=== PATIENT | male | born 1955 | race Caucasian/White ===

== ENCOUNTER 2017-09-01 11:34 | Day surgery (SDC) | payer OTHER ==
[2017-09-01] MEDS ORDERED: fentaNYL 100 MCG/2 ML INJ IVP ONE (11:48)
[2017-09-01] MEDS ORDERED: BENZOCAINE UNIT DOSE SPRAY HURRICAINE MM ONE (11:48)
[2017-09-01] MEDS ORDERED: MIDAZOLAM 2 MG/2 ML VIAL IVP ONE (11:48)
[2017-09-01] MEDS ORDERED: NS 500 ML IV ONE (11:48)
[2017-09-01] MEDS ORDERED: ATROPINE SULFATE 1 MG/10 ML SYR IVP ONE (11:48)
--- NOTE | 2017-09-01 12:15 | PDANEPAE ---
ANE Past Medical History - Pulmonary History Hx Sleep Apnea: Yes ANE Review of Systems Review of Systems: ANE Patient History - Allergies Allergies/Adverse Reactions: benadryl Allergy (Uncoded 06/15/12 16:24) aggravates afib - Home Medications Home Medications: Aspirin [Aspir 81] 81 mg PO 1800 06/30/12 [Last Taken 06/29/12] Metoprolol Tartrate 8 mg PO DAILY 06/30/12 [Last Taken 06/23/12] Pharmacy Complete 06/30/12 06/30/12 [Last Taken Unknown] - Smoking Hx Smoking Status: Never smoked ANE Labs/Vital Signs - Vital Signs Height: 180 cm Weight: 78 kg ANE Physical Exam - Airway Neck exam: FROM Mallampati Score: Class 1 Mouth exam: normal dental/mouth exam - Pulmonary Pulmonary: no respiratory distress, no rales or rhonchi - Cardiovascular Cardiovascular: regular rate and rhythym, no murmur, rub, or gallop - ASA Status ASA Status: III ANE Anesthesia Plan Anesthesia Plan: GA with mask
[2017-09-01] MEDS ORDERED: PROPOFOL 200 MG/20 ML VIAL ONE (12:20)
[2017-09-01 12:35] LABS: INR 1.05 (0.83-1.16); PROTIME(PATIENT) 13.9 SEC (12.0-15.0)
--- NOTE | 2017-09-01 12:35 | PDHPUP ---
History & Physical Update H&P update statement: This history and physical update is based on an assessment of the patient which was completed after admission or registration (within 24 hours), but prior to the surgery/procedure. pt wants jannie and cardioversion. he is on eliquis understands risks and options.
[2017-09-01] MEDS ORDERED: NALOXONE HCL 0.4 MG/ML INJ IVP PRN (12:55)
--- NOTE | 2017-09-01 12:55 | POSTANESTH ---
Post Anesthetic Evaluation Cardiovascular Status: Normal, Stable Respiratory Status: Normal, Stable Level of Consciousness/Mental Status: Can Participate in Eval Pain Control: Adequate, Prn Tx Ordered Nausea/Vomiting Control: Adequate, Prn Tx Ordered Complications Possibly Related to Anesthesia: None Noted
--- NOTE | 2017-09-01 13:19 | CPIP ---
[f rep st] INVASIVE CARDIAC PROCEDURE Atrial fibrillation. The patient was referred for cardioversion and transesophageal echocardiogram for symptomatic atrial fibrillation. He gave informed consent, and we went carefully over the risks and options that were available to him . He wanted to proceed. The patient had a transesophageal echocardiogram which showed excellent flow through his left atrial appendage. No sign of abnormality or clot, and had terrific velocities. We proceeded to do cardioversion with 360 watt seconds, and the patient converted to normal sinus rhy th. At the time of this dictation, he is waking up with Anesthesia present. He is moving all his extremi ties, and so far has tolerated the procedure very well. /[id number]/MODL
--- NOTE | 2017-09-01 13:43 | CPEKG ---
Heart Rate: 55 RR Interval: 1091 P-R Interval: 192 QRSD Interval: 86 QT Interval: 464 QTC Interval: 444 P [place]: 42 QRS [place]: 62 T Wave [place]: 23 EKG Severity - NORMAL ECG - EKG Impression: SINUS RHYTHM Electronically Signed By: Michael Meléndez 01-Sep-2017 14:50:23
--- NOTE | 2017-09-02 12:12 | ECHO ---
[email or web address] [address] Main: [phone] Fax: Transesophageal Echocardiography Name: BRANDY MATHUR MR#: [id number] Study Date: 09/01/2017 Study Time: 12:23 PM Date of : 1955 Age: 62 year(s) Height: ( ) Weight: ( ) BSA: Gender: Male Examination: Echo Indication: Atrial Flutter Image Quality: Contrast: Requested by: Tobin Gould Heart Rate: Rhythm: Atrial flutter BP: / Procedure Staff Rn Pacu: Judi Kumar [facility] Reading Physician: Zeb Davila MD Requesting Provider: JAMES Exam Details Conclusions: No thrombus in left appendage. The aortic valve is tri-leaflet. Measurements: Chambers Valvular Assessment AV/MV Valvular Assessment TV/PV Normal Normal Normal Name Value Range Name Value Range Name Value Range Additional Measurements: Findings: Left Atrial Appendage: No thrombus in left appendage. Aortic Valve: The aortic valve is tri-leaflet. l1n (No Signature Object) Patient: BRANDY MATHUR Study Date: 09/01/2017 Page 1 of 1 12:23 PM [id number]
== END 2017-09-01 14:41 | disposition home or self-care (01) ==
LOC: FCATH 11:34 → EDSTATUS 18:10
PROVIDERS: ATTEND Internal Medicine Cardiovascular Disease
PROC: B245ZZ4 Ultrasonography of Left Heart, Transesophageal (ICD-10-PCS; principal; 2017-09-01)
PROC: 5A2204Z Restoration of Cardiac Rhythm, Single (ICD-10-PCS; principal; 2017-09-01)
DX: I48.92 Unspecified atrial flutter (principal); R00.2 Palpitations; R07.89 Other chest pain; R68.89 Other general symptoms and signs; Z79.01 Long term (current) use of anticoagulants; Z98.890 Other specified postprocedural states
CPT/HCPCS: J2250; J2704

== ENCOUNTER 2017-09-17 14:49 | Day surgery (SDC) | payer OTHER ==
[2017-09-17] MEDS ORDERED: MIDAZOLAM 2 MG/2 ML VIAL IVP ONE (14:54)
[2017-09-17] MEDS ORDERED: NS 500 ML IV ONE (14:54)
[2017-09-17] MEDS ORDERED: fentaNYL 100 MCG/2 ML INJ IVP ONE (14:54)
[2017-09-17] MEDS ORDERED: ATROPINE SULFATE 1 MG/10 ML SYR IVP ONE (14:54)
[2017-09-17] MEDS ORDERED: PROPOFOL 200 MG/20 ML VIAL ONE (15:31)
--- NOTE | 2017-09-17 15:33 | PDANEPAE ---
ANE History of Present Illness h/o a. fib ANE Past Medical History - Cardiovascular History Hx Hypertension: No Hx Arrhythmias: Yes Hx Chest Pain: No Hx Coronary Artery / Peripheral Vascular Disease: No Hx CHF / Valvular Disease: No Hx Palpitations: Yes - Pulmonary History Hx COPD: No Hx Asthma/Reactive Airway Disease: No Hx Recent Upper Respiratory Infection: No Hx Oxygen in Use at Home: No Hx Sleep Apnea: Yes ANE Review of Systems Review of systems is: negative Review of Systems: - Exercise capacity Exercise capacity: >=4 METS ANE Patient History - Allergies Allergies/Adverse Reactions: benadryl Allergy (Uncoded 06/15/12 16:24) aggravates afib - Home Medications Home medications: home medication list seen and reviewed Home Medications: Metoprolol Tartrate 12.5 mg PO BID 06/30/12 [Last Taken 09/15/17 08:00] Pharmacy Complete 06/30/12 06/30/12 [Last Taken Unknown] Eliquis 5 mg PO BID 09/17/17 [Last Taken 09/17/17 05:55] - Anes Hx Anes Hx: no prior problems - Smoking Hx Smoking Status: Never smoked ANE Labs/Vital Signs - Labs Result Diagrams: 09/17/17 15:00 - Vital Signs Height: 180 cm Weight: 78 kg ANE Physical Exam - Airway Neck exam: FROM Mallampati Score: Class 1 Mouth exam: normal dental/mouth exam - Pulmonary Pulmonary: no respiratory distress - Cardiovascular Cardiovascular: regular rate and rhythym, irregularly irregular - ASA Status ASA Status: II ANE Anesthesia Plan Anesthesia Plan: GA with mask
--- NOTE | 2017-09-17 15:36 | PDGENHP ---
History & Physical Chief Complaint: Atrial Fibrillation. History of Present Illness: Palpitations, new onset atrial fibrillation. Pertinent Past, Social, Family History: None. Relevant Physical Exam: Clear lungs, irregularly irregular. Cardiorespiratory Assessment: New onset atrial fibrillation. On Eliquis. Prior JAMES/CV 09/01/2017.
[2017-09-17 15:57] LABS: INR 1.04 (0.83-1.16); PROTIME(PATIENT) 13.8 SEC (12.0-15.0)
--- NOTE | 2017-09-17 16:03 | PDTEE1 ---
JAMES Cardioversion Procedure Procedure: electrical cardioversion Indications: atrial fibrillation Consent: signed and in chart Anticoagulation: eliquis Procedural Details: Pads were placed in anterior-posterior position. JAMES probe was advanced and standard images obtained. There is no evidence of left atrial or left atrial appendage thrombus. Synchronized cardioversion attempt #1: 200J Results: normal sinus rhythm Conclusions: successful cardioversion Conclusion Comment: JAMES not performed. Patient Problems: Problems Problem Status Onset Atrial fibrillation and flutter Active
[2017-09-17] MEDS ORDERED: NALOXONE HCL 0.4 MG/ML INJ IVP PRN (16:09)
--- NOTE | 2017-09-17 16:14 | CPEKG ---
Heart Rate: 49 RR Interval: 1224 P-R Interval: 180 QRSD Interval: 80 QT Interval: 468 QTC Interval: 423 P [place]: 47 QRS [place]: 56 T Wave [place]: 45 EKG Severity - OTHERWISE NORMAL ECG - EKG Impression: SINUS BRADYCARDIA Electronically Signed By: Gerardo Silveira 17-Sep-2017 16:18:26
[2017-09-17] MEDS ORDERED: LIDOCAINE/PRILOCAINE 1 EACH CRTUBE TP ONE (17:06)
== END 2017-09-17 17:19 | disposition home or self-care (01) ==
LOC: FCATH 14:49
PROVIDERS: ATTEND Internal Medicine Cardiovascular Disease
PROC: 5A2204Z Restoration of Cardiac Rhythm, Single (ICD-10-PCS; principal; 2017-09-17)
DX: I48.91 Unspecified atrial fibrillation (principal); Z79.01 Long term (current) use of anticoagulants
CPT/HCPCS: J0461; J2704

== ENCOUNTER → 2018-11-15 | Outpatient (CLI) | payer OTHER ==
[~2018-11-15] MED LIST: IOPAMIDOL (ISOVUE 370) 100 ML BTL IV ONE
== END ==
LOC: FIMAGING 11:34
PROVIDERS: ATTEND Internal Medicine Cardiovascular Disease
DX: I48.91 Unspecified atrial fibrillation (principal)
CPT/HCPCS: Q9967

== ENCOUNTER 2018-11-16 07:04 | Observation (INO) | payer OTHER ==
[2018-11-16] MEDS ORDERED: NS 1,000 ML IV ONE (07:08)
--- NOTE | 2018-11-16 07:48 | PDGENHP ---
History & Physical Chief Complaint: afib History of Present Illness: palpitations Relevant Physical Exam: [id number]. [id number] Cardiorespiratory Assessment: for AFIB cb ablation. On presentation had AT/AFL , will check AFL line
[2018-11-16 07:50] LABS: PLATELET COUNT 260 10^3/uL (150-400)
[2018-11-16 08:00] LABS: INR 0.94 (0.83-1.16); PROTIME(PATIENT) 12.2 SEC (12.0-15.0)
[2018-11-16] MEDS ORDERED: LIDOCAINE 1% 300 MG/30 ML SDV ONE (08:25)
[2018-11-16] MEDS ORDERED: BUPIVACAINE 0.5% 30 ML SDV ONE (08:25)
[2018-11-16] MEDS ORDERED: HEPARIN/DEXTROSE 25,000 UNIT/500 ML BAG ONE (08:25)
[2018-11-16] MEDS ORDERED: HEPARIN 10,000 UNIT/10 ML MDV (1,000 UNIT/ML) ONE (08:25)
[2018-11-16] MEDS ORDERED: IOPAMIDOL (ISOVUE-300) 100 ML BTL ONE (08:26)
[2018-11-16] MEDS ORDERED: ROCURONIUM 50 MG/5 ML VIAL ONE (08:48)
[2018-11-16] MEDS ORDERED: DEXAMETHASONE 4 MG/ML VIAL ONE (08:48)
[2018-11-16] MEDS ORDERED: PROPOFOL 200 MG/20 ML VIAL ONE (08:48)
--- NOTE | 2018-11-16 09:00 | PDANEPAE ---
ANE History of Present Illness EP studies, ablation of atrial flutter/fib. ANE Past Medical History - Cardiovascular History Hx Hypertension: No Hx Arrhythmias: Yes Hx Chest Pain: No Hx Coronary Artery / Peripheral Vascular Disease: No Hx CHF / Valvular Disease: No Hx Palpitations: Yes - Pulmonary History Hx COPD: No Hx Asthma/Reactive Airway Disease: No Hx Recent Upper Respiratory Infection: No Hx Oxygen in Use at Home: No Hx Sleep Apnea: Yes - Neurologic History Hx Cerebrovascular Accident: No Hx Seizures: No Hx Dementia: No - Endocrine History Hx Diabetes: No Hypothyroid: No Obesity: no - Renal History Hx Renal Disorders: No - Liver History Hx Hepatic Disorders: No - GI History GERD: no Hx Gastrointestinal Disorders: No - Surgical History Prior Surgeries: s/p ablation ANE Review of Systems Review of Systems: - Exercise capacity Exercise capacity: >=4 METS ANE Patient History - Allergies Allergies/Adverse Reactions: benadryl Allergy (Uncoded 06/15/12 16:24) aggravates afib - Home Medications Home Medications: Apixaban [Eliquis] 5 mg PO BID 09/17/17 [Last Taken 11/13/18 18:30] C/E/Zn/Cu/OM3/DHA/EPA/LUT/ZEAX [Preservision Areds 2 Softgel] 1 each PO BID 03/24 [Last Taken 11/15/18 18:30] Flecainide Acetate 50 mg PO BID 11/11/18 [Last Taken 11/12/18 18:30] Herbals/Supplements -Info Only 1 ea PO DAILY 11/11/18 [Last Taken 11/15/18 18:30 ] Omeprazole 20 mg PO DAILY 11/11/18 [Last Taken 11/15/18 18:30] Metoprolol Tartrate 25 mg PO PRN 11/16/18 [Last Taken 11/08/18 08:00] - Anes Hx Anes Hx: no prior problems - Smoking Hx Smoking Status: Never smoked Marijuana use: No - Alcohol Use Alcohol Use: None - Family Anes Hx Family Anes Hx: none ANE Labs/Vital Signs - Labs Result Diagrams: 11/16/18 07:40 11/16/18 07:40 - Vital Signs Height: 180 cm Weight: 78 kg ANE Physical Exam - Airway Neck exam: FROM (occasional extra beats) Mallampati Score: Class 1 Mouth exam: normal dental/mouth exam - Pulmonary Pulmonary: clear to auscultation - Cardiovascular Cardiovascular: irregularly irregular - ASA Status ASA Status: II ANE Anesthesia Plan Anesthesia Plan: general endotracheal anesthesia
[2018-11-16] MEDS ORDERED: MIDAZOLAM 2 MG/2 ML VIAL ONE (09:05)
[2018-11-16] MEDS ORDERED: GLYCOPYRROLATE 0.2 MG/1 ML VIAL ONE (10:34)
[2018-11-16] MEDS ORDERED: ONDANSETRON 4 MG/2 ML VIAL ONE (11:37)
[2018-11-16] MEDS ORDERED: PROTAMINE SULFATE 50 MG/5 ML VIAL IVP ONE (11:38)
[2018-11-16] MEDS ORDERED: fentaNYL 100 MCG/2 ML INJ IVP PRN (11:51)
[2018-11-16] MEDS ORDERED: NALOXONE HCL 0.4 MG/ML INJ IVP PRN (11:51)
--- NOTE | 2018-11-16 12:14 | EPPROC ---
Electrophysiology Procedure Note: ELECTROPHYSIOLOGIC STUDY AND BALLOON-CATHETER MEDIATED CRYOABLATION FOR PAROXSYSMAL ATRIAL FIBRILLATION AND RIGHT ATRIAL TACHYCARDIA Procedures performed: 44179-79 EP evaluation with RA/RV/LA pace/record, with arrhythmia induction 98939-46 EP evaluation with RA/RV pace record, insert/reposition catheter, with arrhythmia induction 97791 Atrial fibrillation ablation Second arrhythmia Intracardiac echocardiogram Transseptal puncture Fluoroscopy INDICATION: Paroxysmal atrial fibrillation Prior ablation at our institution for atrial flutter PROCEDURE: The patient arrived in the Electrophysiology Laboratory in the fasting state. The right groin, left groin and right infraclavicular area were prepped and draped in the usual sterile fashion. Anesthesiologist administered general anesthesia Dr. Jayne Brooks . All catheters were placed percutaneously using the Seldinger technique and advanced into position under fluoroscopic guidance. One #7 Sinhala deflectable octapolar electrode catheter was placed in the His-bundle position via the left femoral vein (2mm spacing, IVC electrode for unipolar recordings). This catheter was placed in the coronary sinus after transseptal puncture and later placed in the SVC-R subclavian vein junction to pace the right phrenic nerve during right pulmonary vein ablation. One #8 Sinhala AcuNaV ultrasound catheter was placed in the left femoral vein and advanced into the right atrium. On arrival to EP lab, patient was in atrial tachycardia, CL 280 ms. We placed CS catheter but while trying to place Halo catheter, the tachycardia terminated. CS pacing showed that there was block across CT isthmus with septal to lateral conduction time of 175 ms. Programmed stimulation was performed from the right atrium, left atrium (CS) and right ventricle. There was no evidence of AV accessory pathway. Intracardiac echo evaluation of the left atrium and pulmonary veins was performed. Baseline ACT was drawn and heparin bolus was administered and heparin drip was started prior to transseptal puncture. ACT was checked every 15 minutes and maintained in the range of 350-400 seconds. One 14Fr short sheath was placed in the right femoral vein. One 8Fr SL1 sheath was advanced into the right atrium via the 14Fr short sheath. Transseptal puncture was performed under intracardiac ultrasound, fluoroscopic and hemodynamic guidance placing the sheath into the left atrium. The [employer] RF needle ( C0 curve) was used. CT angiography of pulmonary veins was done previously. There were distinct LSPV , LIPV, RSPV and RIPV. The SL1 sheath was exchanged for a Medtronic Flexcath sheath using an Amplatz stiff guide wire. A 28 mm Cryoballoon catheter with a 20 mm Achieve catheter was placed via the sheath into the left atrium. Intracardiac ultrasound and PV angiograms were used to assist in placing the mapping catheter at the antrum of the pulmonary veins. All pulmonary veins were isolated successfully using cryoballoon ablation using freeze/thaw/freeze cycles at 2-3-minute intervals, with good [id number]-azcfca of isolation. Coumadin ridge/Ligament of [place] region was ablated. Pre and post pulmonary vein recordings were measured on the spiral Achieve catheter to ensure complete pulmonary vein isolation. During the right-sided ablation, phrenic nerve pacing was performed to assess the phrenic nerve strength ( manually and with ICE visualization of liver movement during phrenic capture) and the phrenic nerve was intact throughout the right-sided ablation and at the end of the procedure. An esophageal temperature probe (12 electrode, Circa) was placed by the anesthesiologist at the beginning of the procedure. Esophageal temperature was monitored continuously and cryoablation was interrupted if esophageal temperature was <15 C. Cryoapplications 5 total cryoablation time 900 s. Sheaths were withdrawn into RA. PS during isoproterenol 1-2 mcg/min easily induced AT, CL [address] isthmus demonstrated bidirectional conduction block and also block was confirmed with 3D mapping. Map of AT showed earliest activation at the posterior interatrial septum, just posterior to the inferior margin of the CS ostium. RF application at this site terminated the atrial tachycardia. PS did not reinduce AT again. ICE imaging post ablation was consistent with pre ablation imaging with no changes noted, moreover there was no left atrial/left ventricular thrombus and no pericardial effusion. ECG showed no ST or T wave changes. The catheters were withdrawn. Protamine was given. The sheaths were removed and manual pressure was used for hemostasis. The patient was recovered from anesthesia. There were no complications. The patient was arousable and moving all four extremities at the end of the procedure. CONCLUSIONS: 1. Paroxysmal atrial fibrillation. 2. Successful pulmonary vein isolation procedure (left and right pulmonary vein antrum) using cryoballoon ablation. 3. Prior ablation along CT isthmus demonstrated durable bidirectional block. 4. Focal atrial tachycardia, CL 280 ms, just posterior to inferior margin of CS ostium. Successful ablation. 5. No apparent complications. Patient Problems: Problems Problem Status Onset Atrial fibrillation and flutter Active
--- NOTE | 2018-11-16 13:11 | CPEKG ---
Test Reason : OPEN Blood Pressure : / mmHG Vent. Rate : 056 BPM Atrial Rate : 056 BPM P-R Int : 163 ms QRS Dur : 089 ms QT Int : 462 ms P-R-T Axes : 046 073 060 degrees QTc Int : 446 ms Sinus rhythm Confirmed by All Beltran ([id number]) on 11/16/2018 1:10:59 PM Referred By: All Beltran Confirmed By:All Beltran
--- NOTE | 2018-11-16 13:18 | CPEKG ---
Test Reason : OPEN Blood Pressure : / mmHG Vent. Rate : 048 BPM Atrial Rate : 227 BPM P-R Int : 249 ms QRS Dur : 088 ms QT Int : 432 ms P-R-T Axes : 264 053 046 degrees QTc Int : 386 ms Atrial tachycardia Borderline ST depression, anterolateral leads Confirmed by All Beltran ([id number]) on 11/16/2018 1:18:30 PM Referred By: All Beltran Confirmed By:All Beltran
[2018-11-16] MEDS: APIXABAN 5 MG TAB PO SCH (20:18)
[2018-11-17 05:57] LABS: PLATELET COUNT 225 10^3/uL (150-400)
[2018-11-17] MEDS: APIXABAN 5 MG TAB PO SCH (07:08)
[2018-11-17] MEDS ORDERED: PANTOPRAZOLE SODIUM 40 MG TAB PO SCH (09:00)
[2018-11-17 10:17] VITALS: BP 114/78
--- NOTE | 2018-11-17 14:56 | ECHO ---
[email or web address] [address] [address] Main: [phone] Echocardiography Examination Transthoracic Name: BRANDY MATHUR MR#: [id number] Study Date: 11/17/2018 Study Time: 09:03 AM Date of : 1955 Age: 63 year(s) Height: 177.8 cm (70 in.) Weight: 77.57 kg (171 lb.) BSA: 1.95 m2 Gender: Male Examination: Echo Contrast: Image Quality: Rhythm: Heart Rate: 55 bpm BP: 118 mmHg/75 mmHg Indication: Post EP Procedure Staff Referring Physician: Geodetic Surveyor Technologist: Kevin Smith RDCS Reading Physician: Mabel Tee MD Requesting Provider: Ordering Physician: All Beltran MD Indication: Post EP Measurements Chambers AV/MV Label Value Normal Value Label Value Normal Value LVOT Vmax 0.68 m/s (0.7m/s - 1.1m/s) AV PGmax 4 mmHg LVOTd 2 cm (1.9cm - 2.1cm) AV PGmean 2 mmHg LVOT VTI 15.8 cm (18cm - 22cm) AV Vmax 1 m/s LVDd, 2D 5.5 cm (4.2cm - 5.9cm) MOHSEN (Vmax) 2.1 cm2 LVDs, 2D 3.5 cm (2.1cm - 4cm) MOHSEN (VTI) 2.6 cm2 IVSd, 2D 0.7 cm (0.6cm - 1.1cm) MV E Vmax 0.63 m/s LVPWd, 2D 0.9 cm (0.6cm - 1cm) MV A Vmax 0.4 m/s LVEF, 2D 66 % (54% - 74%) MV E/A 1.58 LVOT PGmean 1 mmHg MV E/E' lateral 7.9 LVOT Vmean 0.45 m/s MV E/E' septal 13.4 (0.45 - 1.25) RVDd, 2D 2.3 cm (1.9cm - 3.8cm) MV E' septal 0.05 m/s LADs, 2D 3.7 cm (3cm - 4cm) MV E' lateral 0.08 m/s Additional Vessels MV E/E' mean 9.69 Label Value Normal Value MV E' mean 0.06 m/s AoRoot, MM 3.6 cm (2.2cm - 3.7cm) TV/PV Label Value Normal Value PV PGmax 2 mmHg PV Vmax, Caliper 0.77 m/s (0.6m/s - 0.9m/s) Patient: BRANDY MATHUR Study Date: 11/17/2018 Page 1 of 2 09:03 AM Conclusions 1. The left ventricle is normal in size and systolic function. Ejection fraction is approximately 55-60%. No regional wall motion abnormalities. 2. The right ventricle is normal in size and systolic function. 3. Normal biatrial size. 4. No significant valvular disease. 5. No pericardial effusion. 6. Compared with JAMES dated 11/16/2018 ejection fraction has improved from 45%. Findings Left Ventricle: Left ventricle is normal in size. Normal global systolic left ventricular function. Left ventricle wall thickness is normal. There are no regional wall motion abnormalities. Left ventricular diastolic function parameters are normal. IVS: The septum is intact. Right Ventricle: Normal size right ventricle. Right ventricular systolic function is normal. Left Atrium: The left atrium is normal in size. IAS: Normal appearing atrial septum. Right Atrium: The right atrium is normal in size. Mitral Valve: Mitral valve is normal in appearance. No mitral regurgitation. No mitral valve stenosis. Aortic Valve: Aortic leaflets exhibit normal cuspal separation. No aortic valve regurgitation. There is no aortic stenosis. Tricuspid Valve: Tricuspid valve leaflets are normal in appearance and function. No tricuspid regurgitation. No tricuspid valve stenosis. Pulmonary artery pressure normal. Pulmonic Valve: Pulmonic leaflets exhibit normal cuspal separation. No pulmonic valve regurgitation is evident. There is no pulmonic valve stenosis. Aorta: The aorta is normal. The aortic root size in M-mode measures 3.6 cm. Aorta Measurements AoRoot, MM is 3.6 cm. Pulmonary Artery: The pulmonary artery morphology appears normal. IVC: The inferior vena cava is normal in size and course. Pericardium: No pericardial effusion. No pleural effusion present. Exam Details Procedure Ordered: Echo (No Signature Object) Patient: BRANDY MATHUR Study Date: 11/17/2018 Page 2 of 2 09:03 AM [id number]
--- NOTE | 2018-11-18 13:37 | GDS ---
[f rep st] DISCHARGE SUMMARY SUPERVISING CAN REFORMING MACHINE OPERATOR: Dr. All Beltran. ADMISSION DIAGNOSIS: Paroxysmal atrial fibrillation with a prior ablation at our institution for atr ial flutter. DISCHARGE DIAGNOSES: 1. Atrial fibrillation status post successful cryoballoon pulmonary vein isolation. 2. Focal right atrial tachycardia status post successful ablation. PROCEDURES PERFORMED DURING HOSPITALIZATION: 1. Electrophysiology study. 2. Electrocardiogram. 3. Echocardiogram. 4. Atrial tachycardia ablation. 5. Atrial fibrillation ablation. HOSPITAL COURSE: Patient presented 11/16/2018, for an atrial fibrillation ablation in the setting of increasingly frequent and symptomatic episodes of paroxysmal atrial fibrillation. He underwent succ essful cryoballoon pulmonary vein isolation in addition to ablation for a focal atrial tachycardia ar ising just posterior to the inferior margin of the coronary sinus ostium. He had no intra-procedure complications and he has done very well in the postprocedure setting. He is appropriate and stable f or discharge home today. PHYSICAL EXAMINATION: GENERAL: Alert and oriented x4. No apparent distress. VITAL SIGNS: Blood p ressure 124/61, heart rate 55, respiratory rate 12, SpO2 is 95% on room air, temp 37.1 degrees Celsiu s. RESPIRATORY: Lungs are clear to auscultation without adventitious breath sounds. CARDIAC: Regu lar rate and rhythm. S1, S2. ABDOMEN: Normoactive bowel sounds times all 4 quadrants. No masses o r tenderness. Soft to palpation. SKIN: [place], warm, dry without cyanosis, clubbing, or peripheral e maryana. EXTREMITIES: Bilateral pursestring sutures removed intact without evidence of redness, oozing , hematoma, swelling, or warmth from the site. Pulses are 2+ bilaterally. No edema. LABORATORY: Laboratory studies drawn today, demonstrates stable CBC and BMP compared to preprocedure . Troponin is 6.88. Please note the elevated troponin is to be expected in the postprocedure settin g. Procedures performed during hospitalization: Electrophysiology study, atrial fibrillation ablation a nd atrial tachycardia ablation as mentioned above. Postprocedure echocardiogram this morning demonst rates stable systolic function and no significant valvular disease. DISCHARGE DISPOSITION: The patient will be discharged home in stable condition. He is under activit y restrictions as below. DISCHARGE MEDICATIONS: Please see discharge medication reconciliation sheet for full details. Pleas e note the patient will continue anticoagulation for at least 3 months post procedure. DISCHARGE INSTRUCTIONS: Atrial fibrillation and atrial tachycardia ablation instructions were review ed with patient and in detail. 1. We discussed activity restrictions including lifting no more than 10 pounds and avoidance of subm erged bathing for 10 days. 2. He will get up and walk around every 45 minutes for 45 days. 3. He will avoid unpressurized air travel or scuba diving for the next 6 months and he will present to our clinic for an echocardiogram prior to engaging in either of these activities. 4. We reviewed bleeding precautions, medication compliance, monitoring for signs or symptoms of infe ction, monitoring for atrial esophageal fistula and managing sustained arrhythmia. At the time of discharge, patient verbalizes understanding regarding all discharge instructions witho ut questions or concerns. He has a followup visit scheduled in 2 weeks. He will contact our clinic with any new or concerning symptoms prior to that time. Time spent on discharge greater than 30 minutes. /[id number]/MODL
--- NOTE | 2018-11-22 13:30 | CPEKG ---
Test Reason : OPEN Blood Pressure : / mmHG Vent. Rate : 056 BPM Atrial Rate : 056 BPM P-R Int : 179 ms QRS Dur : 090 ms QT Int : 451 ms P-R-T Axes : 027 052 036 degrees QTc Int : 436 ms Sinus rhythm Confirmed by All Beltran ([id number]) on 11/22/2018 1:30:29 PM Referred By: All Beltran Confirmed By:All Beltran
== END 2018-11-17 12:18 | disposition home or self-care (01) ==
LOC: FCATH 07:04 → INTOOBSV 12:02 → F2N 12:02
PROVIDERS: ADMIT Internal Medicine Cardiovascular Disease; ATTEND Internal Medicine Cardiovascular Disease
PROC: 025S3ZZ Destruction of Right Pulmonary Vein, Percutaneous Approach (ICD-10-PCS; principal; 2018-11-16)
PROC: 02583ZZ Destruction of Conduction Mechanism, Percutaneous Approach (ICD-10-PCS; principal; 2018-11-16)
PROC: B246YZZ Ultrasonography of Right and Left Heart using Other Contrast (ICD-10-PCS; principal; 2018-11-16)
PROC: 02H73MZ Insertion of Cardiac Lead into Left Atrium, Percutaneous Approach (ICD-10-PCS; principal; 2018-11-16)
PROC: 025T3ZZ Destruction of Left Pulmonary Vein, Percutaneous Approach (ICD-10-PCS; principal; 2018-11-16)
PROC: B2161ZZ Fluoroscopy of Right and Left Heart using Low Osmolar Contrast (ICD-10-PCS; principal; 2018-11-16)
PROC: 02K83ZZ Map Conduction Mechanism, Percutaneous Approach (ICD-10-PCS; principal; 2018-11-16)
DX: I48.0 Paroxysmal atrial fibrillation (principal); I47.1 Supraventricular tachycardia
CPT/HCPCS: 93005; 93306; 93613; 93623; 93655; 93656; 93662; C1893; G0378; C1730; C1731; C1732; C1733; C1759; C1766; J1100; J1644; J2250; J2405; J2704; J2720; Q9967